=== PATIENT | female | born 1995 | race African-American/Black ===

== ENCOUNTER 2017-08-28 09:57 | Emergency (ER) | payer SELFPAY ==
[2017-08-28] MEDS: NAPROXEN 500 MG TABLET PO (10:47)
[2017-08-28] MEDS: HYDROcodone/APAP 5/325MG 1 TAB TABLET PO (10:47)
[2017-08-28] MEDS: LIDOCAINE WITH 8.4% SOD BICARB 3 ML DISP.SYRIN. INJ (10:48)
[2017-08-28] MEDS: DIPHTH,PERTUSS(ACELL),TET TOX 0.5 ML DISP.SYRIN. VAX IM (11:45)
== END 2017-08-28 11:53 | disposition home or self-care (01) ==
LOC: ER 09:57
DX: L03.115 Cellulitis of right lower limb (principal); L02.415 Cutaneous abscess of right lower limb; Z88.0 Allergy status to penicillin
CPT/HCPCS: 10060; 90471; 90715; 99283